=== PATIENT | female | born 1995 | race Caucasian/White ===

== ENCOUNTER 2020-03-22 07:57 | Outpatient (CLI) | payer SELFPAY ==
[2020-03-22] MEDS ORDERED: IOVERSOL 320 50 ML VIAL ONE (08:25)
[2020-03-22] MEDS ORDERED: IOVERSOL 320 100 ML VIAL IVP ONE ×2 (08:25→14:33)
--- NOTE | 2020-03-22 13:57 | CT Report ---
Reason: ABDOMINAL MASS, RLQ Procedure Date: 03/22/2020 Accession Number: [id number] / [id number] Procedure: CT - Abdomen/Pelvis W CPT Code: Final Report FULL RESULT: EXAM: CT ABDOMEN AND PELVIS EXAM DATE: 03/22/2020 09:29 AM. CLINICAL HISTORY: Abdominal mass, right lower quadrant. COMPARISONS: None. TECHNIQUE: Routine helical CT imaging was performed through the abdomen and pelvis. IV contrast: 100 mL of Optiray 320. Enteric contrast: Yes. Reconstructions: Coronal and sagittal. In accordance with CT protocol optimization, one or more of the following dose reduction techniques were utilized for this exam: automated exposure control, adjustment of mA and/or KV based on patient size, or use of iterative reconstructive technique. FINDINGS: Lung Bases: Unremarkable. Liver: Normal. No masses. Gallbladder/Bile Ducts: Unremarkable. Spleen: Normal. Pancreas: Normal. Adrenal Glands: Normal. Kidneys: Normal. No masses or hydronephrosis. Peritoneal Cavity/Bowel: No pneumoperitoneum, adenopathy or masses seen. Small volume ascites is noted. Moderate to marked wall thickening centered in the cecum and the distal portions of the terminal ileum. Small volume fluid extends from the right lower quadrant of the abdomen into the pelvis. No loculated collections are noted. In addition, there is a 0.9 cm dilated tubular structure most consistent with an enlarged appendix on image 3, 69. No definite appendicolith. Epicenter of the inflammatory changes appears to be small bowel and cecum rather than the appendix. Occasional sigmoid diverticula noted. The remaining portions of the stomach, small bowel and large bowel are normal. Pelvic Organs: Pelvic organs are normal. Free fluid is noted in the pelvis. Normal bladder. No bladder stone or mass. Vasculature: No aneurysms or other significant abnormality. Bones: No significant abnormality. Other: None. IMPRESSION: 1. Significant right lower quadrant inflammatory changes with long segment of terminal ileal and short segment cecal wall thickening. Dilated appendix measures 0.9 cm. Differential includes an infectious or inflammatory process centered in the cecum and terminal ileum with secondary inflammation of the appendix. Alternatively, appendicitis with secondary inflammation of the terminal ileum and cecum are on the differential. Given that the inflammatory changes seem to be centered around the cecum and terminal ileum more than the appendix, favor the first process over the latter. Consider surgical consultation. 2. No complications such as obstruction, perforation or abscess. [facility] The call report notification system was initiated by Dr. Mallika Naqvi at 11:55 AM on 03/22/2020. The above call report findings were discussed with Carmen Neves by Dr. Mallika Naqvi at 12:02 PM on 03/22/2020.
[2020-03-22] MEDS ORDERED: IOVERSOL 320 50 ML VIAL PO ONE (14:33)
== END 2020-03-22 07:58 | disposition home or self-care (01) ==
LOC: DI 07:57
PROVIDERS: ATTEND Obstetrics & Gynecology
DX: R93.5 Abnormal findings on diagnostic imaging of other abdominal regions, including retroperitoneum (principal)
CPT/HCPCS: 74177; Q9967

== ENCOUNTER 2020-04-12 13:50 | Outpatient (CLI) | payer SELFPAY | END 2020-04-12 13:51 | disposition home or self-care (01) | LOC: LAB.S 13:50 | PROVIDERS: ATTEND Surgery | DX: R10.31 Right lower quadrant pain (principal); Z53.9 Procedure and treatment not carried out, unspecified reason | CPT/HCPCS: 81599 ==

== ENCOUNTER → 2020-04-12 | Outpatient (CLI) | payer SELFPAY | LOC: LAB 08:00 | PROVIDERS: ATTEND Obstetrics & Gynecology | DX: R10.31 Right lower quadrant pain (principal); Z11.59 Encounter for screening for other viral diseases | CPT/HCPCS: 81599 ==

== ENCOUNTER 2020-04-16 07:34 | Day surgery (SDC) | payer SELFPAY ==
[2020-04-16] MEDS ORDERED: HYDROmorphone 1 MG/ML CARPUJECT IVP ONE (07:35)
[2020-04-16] MEDS ORDERED: MIDAZOLAM 2 MG/2 ML VIAL IVP ONE (07:35)
[2020-04-16] MEDS ORDERED: PROPOFOL 200 MG/20 ML VIAL IVP ONE (07:35)
[2020-04-16] MEDS ORDERED: LIDOCAINE-MPF 2% 5 ML VIAL IM ONE (07:35)
[2020-04-16] MEDS ORDERED: GLYCOPYRROLATE 1 MG/5 ML VIAL IVP ONE (07:35)
[2020-04-16] MEDS ORDERED: ACETAMINOPHEN 1,000 MG/100 ML 100 ML IV ONE (07:35)
[2020-04-16] MEDS ORDERED: ROCURONIUM 50 MG/5 ML VIAL IVP ONE (07:35)
[2020-04-16] MEDS ORDERED: KETOROLAC 30 MG/ML VIAL IVP ONE (07:35)
[2020-04-16] MEDS ORDERED: fentaNYL 100 MCG/2 ML VIAL IVP ONE (07:35)
[2020-04-16] MEDS ORDERED: NEOSTIGMINE 1 MG/1 ML 10 ML MDV IVP ONE (07:35)
[2020-04-16] MEDS ORDERED: DEXAMETHASONE 4 MG/ML VIAL IVP ONE (07:35)
[2020-04-16] MEDS ORDERED: ONDANSETRON 4 MG/2 ML VIAL IVP ONE (07:35)
[2020-04-16] MEDS ORDERED: LACTATED RINGERS 1,000 ML IV ONE ×3 (07:37→10:19)
[2020-04-16 07:52] LABS: HCG UR QUAL NEGATIVE
[2020-04-16] MEDS ORDERED: LIDOCAINE 1%-EPI 1:100000 20 ML MDV ONE (07:53)
[2020-04-16] MEDS ORDERED: BUPIVACAINE 0.5% PF 30 ML VIAL ONE (07:53)
[2020-04-16] MEDS ORDERED: CEFOTETAN DISODIUM 1 GM VIAL ONE (07:54)
[2020-04-16] MEDS ORDERED: LIDOCAINE 1%-EPI 1:100000 30 ML MDV SUBQ ONE (08:15)
[2020-04-16] MEDS ORDERED: BUPIVACAINE 0.5% PF 30 ML VIAL SUBQ ONE ×2 (08:16)
--- NOTE | 2020-04-16 08:32 | ANESTHESIA ---
Pre-Anesthesia VS, & Labs - Diagnosis RLQ pain - Procedure diagnostic laparoscopy Vital Signs: Temp Pulse Resp BP Pulse Ox 36.9 C 94 15 134/93 H 97 04/16/20 07:52 04/16/20 07:52 04/16/20 07:52 04/16/20 07:52 04/16/20 07:52 Height 5 ft 9 in Weight (kg) 92 kg Body Mass Index 27.8 - NPO >8 hours - Is Patient ?: No - Lab Results Lab results reviewed: Yes Home Medications and Allergies Ethinyl Estradiol/Drospirenone [Jasmiel 3 mg-0.02 mg Tablet] 1 each PO DAILY 03/28/20 Omeprazole 20 mg PO BID 04/12/20 Allergies/Adverse Reactions: Allergies Allergy/AdvReac Type Severity Reaction Status Date / Time No Known Drug Allergies Allergy Verified 07/24/15 12:43 Anes History & Medical History - Anesthetic History Anesthesia Complications: reports: No previous complications - Medical History Cardiovascular: reports: None Pulmonary: reports: None Gastrointestinal: reports: GERD, Other Urinary: reports: None Neuro: reports: None Musculoskeletal: reports: None Endocrine/Autoimmune: reports: None Blood Disorders: reports: None Skin: reports: None Smoking Status: Former smoker (quit 2 years ago) - Surgical History General: EGD Eyes Ears Nose Throat (EENT): Tonsil/Adenoidectomy Orthopedic:  Exam General: Alert, Oriented x3, Cooperative Dental: WNL Mouth Opening: Greater than 4 Fingerbreadths Neck Mobility: Normal Mallampati classification: II Thyromental Distance: 4-6 cm Respiratory: Lungs clear Cardiovascular: Regular rate Plan Anesthesia Type: General Consent for Procedure(s) Verified and Reviewed: Yes Code Status: Attempt Resuscitation ASA classification: 2-Mild systemic disease Is this case an emergency?: No
--- NOTE | 2020-04-16 10:15 | OPERATIVE REPORT ---
Operative Report - General Procedure Date: 04/16/20 Planned Procedure: Diagnostic laparoscopy with appendectomy Pre-Op Diagnosis: Right lower quadrant pain and mass Procedure Performed: Diagnostic laparoscopy with extensive lysis of adhesions and appendectomy with drain placement. Post Op Diagnosis: Right lower quadrant pain and mass - Procedure Note Primary Surgeon: Nan Anesthesia Provider: LUCIAN Tejada Anesthesia Technique: General ET tube, Local Pathology: Portions of appendix to pathology in formalin Estimated Blood Loss (mL): 50 Drain/Tube Type: Samuel drain (19 F Samuel drain in the right lower quadrant) Indications: Persistent right lower quadrant pain with mass on CT and normal colonoscopy Findings: 1. Right lower quadrant phlegmon with dense adhesions. The appendix extends into the phlegmon. 2. Normal and viable appearing right tube and ovary not involved in the inflammatory process. Complications: None apparent - Other Other Information/Narrative: After obtaining informed consent, the patient is brought to the operating room and placed in the supine position on the operating table. Following successful induction of general endotracheal anesthesia, appropriate padding of all bony prominences, and placement of appropriate monitors, the abdomen was prepped and draped in the standard surgical fashion. A timeout was held per scope protocol. All elements of the surgical safety checklist were followed before, during, and after the procedure. We began the procedure by infiltrating mixture of local anesthetics inferior to the umbilicus. An incision was created here and carried down through the skin and subcutaneous tissue to reveal the fascia below. 2-0 Vicryl retention sutures were placed on either side of the midline and the abdomen was entered under direct vision using a 15 blade scalpel. A 10 mm blunt Obrien balloon trocar was placed in the abdominal cavity and it was insufflated to 15 mmHg pressure. A second trocar was placed midway between the umbilicus and the pubis and a third in the right upper quadrant again after infiltration with local anesthetic. The abdomen was insufflated to 15 mmHg pressure and the patient was placed in Trendelenburg position. With a camera placed in the central port, we immediately visualized a right lower quadrant phlegmon. It extended from the right lower quadrant toward the midline. We began performing lysis of adhesions rolling the right colon and associated phlegmon off of the abdominal wall gingerly. We not able to see clearly so a fourth trocar was placed in the suprapubic region again with local anesthetic. This gave us better visualization on the top of the phlegmon. After some considerable dissection we were able to identify what appeared to be the appendix attachment to the cecum. Additionally we were able to easily identify the right tube and ovary and they appeared to be completely normal and not involved in the inflammatory process. The appendix itsWas then liberated from its attachment to the cecum with a gastrointestinal anastomotic device. We then proceeded to dissected free from the center of this phlegmon. This was done gingerly. The tissue was very stiff and indurated. The mesentery was very shortened. Once we had the entire appendix free, it was pulled out through the central port there was no gross purulence but the patient's heart rate was noted to increase substantially we will began to dissect through the phlegmon. The right colon proximal to the cecum appears completely normal. The ileocolic junction was identified with some difficulty. It was quite thickened and indurated. It is impossible to determine if there was creeping fat associated with the distal ileum due to the significant inflammatory response. The cecum was then identified once again and the staple line examined once again a second staple line was placed Distal to the first as the tissue was quite indurated and we wanted to be sure there was no leak. A clip was placed at the end of this as well. We then placed a 19 [place] Samuel drain through the umbilical port and brought it out in the right upper quadrant. It was placed in the right paracolic gutter in and around the stapled end of the cecum and into the central portion of the phlegmon. It was sewn into place. The wound was then checked once again for hemostasis the abdomen was irrigated with 1.5 L of warm saline solution and aspirated free of all fluid and particulate matter. The table was then flattened. All trochars were removed under direct vision and the abdomen desufflated. The umbilical incision was closed with 2 layers of 0 Vicryl suture and Monocryl was placed in the skin all other skin incisions were closed with Monocryl. Dermabond was applied to the skin. All sponge, needle, and instrument counts were correct at the conclusion of the case. The patient was allowed awaken from anesthesia without significant difficulty and taken to the postanesthesia care unit in good condition.
[2020-04-16] MEDS ORDERED: SODIUM CHLORIDE FLUSH 0.9% 10 ML SYRINGE IVP PRN (10:24)
[2020-04-16] MEDS ORDERED: ONDANSETRON 4 MG/2 ML VIAL IVP PRN (10:24)
[2020-04-16] MEDS ORDERED: oxyCODONE 5 MG TABLET PO PRN (10:24)
[2020-04-16] MEDS ORDERED: HYDROmorphone 0.5 MG/0.5 ML SYRINGE IVP PRN (10:24)
[2020-04-16] MEDS: HYDROmorphone 1 MG/ML CARPUJECT ONE ×3 (10:46→11:03)
[2020-04-16] MEDS: KETOROLAC 30 MG/ML VIAL IVP SCH ×3 (11:37→22:44)
[2020-04-16] MEDS: ACETAMINOPHEN 1,000 MG/100 ML 100 ML IV SCH ×2 (11:39→18:16)
[2020-04-16] MEDS: SODIUM CHLORIDE 0.9% 1,000 ML IV SCH ×2 (11:39→22:17)
[2020-04-16] MEDS ORDERED: ceFAZolin 2 GM in SODIUM CHLORIDE 0.9% 100ML 100 ML IV SCH (16:00)
[2020-04-16] MEDS: ceFAZolin 2 GM in SODIUM CHLORIDE 0.9% 100ML 100 ML IV SCH (16:26)
[2020-04-16] MEDS ORDERED: SENNA 8.6 MG TABLET PO PRN (16:39)
[2020-04-16] MEDS: SODIUM CHLORIDE FLUSH 0.9% 10 ML SYRINGE IVP SCH (18:22)
[2020-04-17] MEDS: ACETAMINOPHEN 1,000 MG/100 ML 100 ML IV SCH ×2 (00:17→06:23)
[2020-04-17] MEDS: SODIUM CHLORIDE FLUSH 0.9% 10 ML SYRINGE IVP SCH ×2 (00:30→08:36)
[2020-04-17] MEDS: ceFAZolin 2 GM in SODIUM CHLORIDE 0.9% 100ML 100 ML IV SCH (00:30)
[2020-04-17] MEDS: KETOROLAC 30 MG/ML VIAL IVP SCH (05:17)
[2020-04-17 06:09] LABS: BASOPHILS % (AUTO) 0.1 %; EOSINOPHILS % (AUTO) 0.2 %; HGB - HEMOGLOBIN 10.1 g/dL (12.0-16.0); LYMPHOCYTES # (AUTO) 0.9 10^3/uL (1.5-3.5); LYMPHOCYTES % (AUTO) 9.1 %; MEAN CORPUSCULAR HEMOGLOBIN 27.1 pg (27.0-31.0); MEAN CORPUSCULAR HGB CONC 31.5 g/dL (32.0-36.0); MEAN CORPUSCULAR VOLUME 86.1 fL (81.0-99.0); MEAN PLATELET VOLUME 9.9 fL (7.9-10.8); MONOCYTES # (AUTO) 0.9 10^3/uL (0.0-1.0); MONOCYTES % (AUTO) 9.3 %; NEUTROPHILS # (AUTO) 7.6 10^3/uL (1.5-6.6); NEUTROPHILS % (AUTO) 80.8 %; PLT - PLATELET COUNT 274 10^3/uL (130-450); RED BLOOD COUNT 3.73 10^6/uL (4.20-5.40); RED CELL DISTRIBUTION WIDTH 14.3 % (12.0-15.0); WHITE BLOOD COUNT 9.4 x10^3/uL (4.8-10.8)
[2020-04-17 06:19] LABS: CALCIUM 8.2 mg/dL (8.5-10.3); CREATININE 0.7 mg/dL (0.4-1.0)
[2020-04-17] MEDS ORDERED: PANTOPRAZOLE 40 MG VIAL IVP SCH (07:00)
[2020-04-17] MEDS ORDERED: IBUPROFEN 600 MG TABLET PO PRN (07:31)
[2020-04-17] MEDS ORDERED: oxyCODONE 5 MG TABLET PO PRN (07:31)
[2020-04-17] MEDS ORDERED: ONDANSETRON 4 MG/2 ML VIAL IVP PRN (07:31)
[2020-04-17] MEDS ORDERED: ACETAMINOPHEN 325 MG TABLET PO PRN (07:31)
[2020-04-17] MEDS ORDERED: ETHINYL ESTRADIOL PO SCH (09:00)
[2020-04-17] MEDS ORDERED: DOCUSATE SODIUM 250 MG CAPSULE PO SCH (09:00)
[2020-04-17] MEDS ORDERED: DROSPIRENONE PO SCH (09:00)
[2020-04-17 09:12] VITALS: BP 129/72
== END 2020-04-17 09:15 | disposition home or self-care (01) ==
LOC: SDS 07:34 → MS3 11:18 → SDS 04-17 09:15
PROVIDERS: ATTEND Surgery
PROC: 0DTJ4ZZ Resection of Appendix, Percutaneous Endoscopic Approach (ICD-10-PCS; principal; 2020-04-16 08:45)
DX: K35.80 Unspecified acute appendicitis (principal)
CPT/HCPCS: 36415; 44970; 80048; 81025; 85025; A9270; J0131; J1170; J7120

== ENCOUNTER 2022-11-24 11:30 | Outpatient (CLI) | payer OTHER ==
[2022-11-24 15:29] LABS: BILIRUBIN,URINE NEGATIVE (NEGATIVE); GLUCOSE, URINE (UA) NEGATIVE (NEGATIVE); KETONES,URINE (UA) TRACE mg/dL (NEGATIVE); LEUKOCYTE ESTERASE, URINE NEGATIVE (NEGATIVE); NITRITE,URINE NEGATIVE (NEGATIVE); OCCULT BLOOD,URINE NEGATIVE (NEGATIVE); PH,URINE 6.5 PH (5.0-7.5); PROTEIN,URINE NEGATIVE (NEGATIVE); UROBILINOGEN,URINE 0.2 (NORMAL) E.U./dL (NORMAL)
[2022-11-24 15:30] LABS: CLARITY,URINE CLEAR (CLEAR)
[2022-11-24 15:48] LABS: BACTERIA,URINE Few /HPF (None Seen); CRYSTALS,URINE 11-25 Ca Oxalate /LPF; MUCUS,URINE Few Strands; RBC,URINE None Seen /HPF (0-5); SQUAMOUS EPITHELIAL CELL,UR FEW Squamous (<= Few); WBC,URINE 0-3 /HPF (0-5)
[2022-11-24 15:49] LABS: YEAST,URINE PRESENT
== END 2022-11-24 23:59 | disposition home or self-care (01) ==
LOC: LAB.WC 11:30
PROVIDERS: ATTEND Obstetrics & Gynecology
DX: R30.0 Dysuria (principal)
CPT/HCPCS: 81001; 87086

== ENCOUNTER 2022-12-01 15:00 | Outpatient (CLI) | payer OTHER ==
--- NOTE | 2022-12-02 11:25 | Ultrasound Report ---
PROCEDURE: Pelvic w/Transvaginal INDICATIONS: PELVIC PAIN TECHNIQUE: Real-time scanning was performed of the pelvic organs, with image documentation. Additional endovagi nal scanning was necessary due to incomplete visualization of the adnexal and endometrial structures by transabdominal scanning. COMPARISON: CT abdomen and pelvis with, 03/14/2020. FINDINGS: Uterus: Uterus is anteverted and normal in size at 7.2 x 2.8 x 4.7 cm. The myometrium is homogeneou s. The endometrium measures 2.0 mm in combined thickness. Nabothian cysts noted in cervix. Ovaries: The right ovary measures 2.6 x 2.2 x 1.7 cm, with a calculated ovarian volume of 5.1 cc. T he left ovary measures 2.3 x 2.1 x 1.5 cm, with a calculated ovarian volume of 3.8 cc. The ovaries h ave a normal sonographic appearance. Less than 12 follicles can be seen in each ovary. No adnexal m asses are seen. Other: No pathologic free abdominal or pelvic fluid. IMPRESSION: Normal pelvic ultrasound exam. A cause for pelvic pain is not identified. If clinical sy mptoms persist, CT is suggested for follow-up. Reviewed by: Vianney Palm MD on 12/02/2022 11:23 AM PST Approved by: Vianney Palm MD on 12/02/2022 11:23 AM PST Station ID: [id number]
== END 2022-12-01 15:01 | disposition home or self-care (01) ==
LOC: DI 15:00
PROVIDERS: ATTEND Obstetrics & Gynecology
DX: R10.2 Pelvic and perineal pain (principal)

== ENCOUNTER 2022-12-19 09:46 | Outpatient (CLI) | payer OTHER ==
[2022-12-19 10:12] LABS: BASOPHILS % (AUTO) 0.3 %; EOSINOPHILS % (AUTO) 0.3 %; HCT - HEMATOCRIT 37.4 % (37.0-47.0); HGB - HEMOGLOBIN 11.8 g/dL (12.0-16.0); LYMPHOCYTES # (AUTO) 0.7 10^3/uL (1.5-3.5); LYMPHOCYTES % (AUTO) 12.3 %; MEAN CORPUSCULAR HEMOGLOBIN 26.9 pg (27.0-31.0); MEAN CORPUSCULAR HGB CONC 31.6 g/dL (32.0-36.0); MEAN CORPUSCULAR VOLUME 85.4 fL (81.0-99.0); MEAN PLATELET VOLUME 9.5 fL (7.9-10.8); MONOCYTES # (AUTO) 0.3 10^3/uL (0.0-1.0); MONOCYTES % (AUTO) 4.6 %; NEUTROPHILS % (AUTO) 82.3 %; PLT - PLATELET COUNT 391 10^3/uL (130-450); RED BLOOD COUNT 4.38 10^6/uL (4.20-5.40); RED CELL DISTRIBUTION WIDTH 13.6 % (12.0-15.0)
[2022-12-19 10:41] LABS: % IRON SATURATION 5 % (20-50); ALBUMIN 3.5 g/dL (3.2-5.5); ALBUMIN/GLOBULIN RATIO 0.8 (1.0-2.2); ALKALINE PHOSPHATASE 61 IU/L (42-121); ALT ALANINE AMINOTRANSFERASE 29 IU/L (10-60); AST ASPARTATE AMINOTRANSFERASE 20 IU/L (10-42); BILIRUBIN,TOTAL 0.3 mg/dL (0.2-1.0); BUN - BLOOD UREA NITROGEN 11 mg/dL (6-20); CALCIUM 9.3 mg/dL (8.5-10.3); CARBON DIOXIDE - CO2 26 mmol/L (21-32); CHLORIDE 104 mmol/L (101-111); CREATININE 0.8 mg/dL (0.4-1.0); GFR - MDRD 85 (>89); GLUCOSE 94 mg/dL (70-100); IRON 31 ug/dL (28-170); POTASSIUM 3.9 mmol/L (3.5-5.0); SODIUM 136 mmol/L (135-145); TOTAL IRON BINDING CAPACITY 587 ug/dL (250-450); TRANSFERRIN 419 mg/dL (192-382)
[2022-12-19 10:46] LABS: CRP - C-REACTIVE PROTEIN < 1.0 mg/dL (0-1.0)
[2022-12-19 10:48] LABS: THYROID STIMULATING HORMONE 0.83 uIU/mL (0.34-5.60)
[2022-12-19 10:53] LABS: FERRITIN 8.9 ng/mL (11.0-306.8)
== END 2022-12-19 09:47 | disposition home or self-care (01) ==
LOC: LAB 09:46
PROVIDERS: ATTEND Physician Assistant
DX: R19.7 Diarrhea, unspecified (principal); D64.9 Anemia, unspecified
CPT/HCPCS: 36415; 80053; 81599; 82728; 83540; 84443; 84466; 85025; 86038; 86140

== ENCOUNTER 2022-12-28 09:40 | Outpatient (CLI) | payer OTHER ==
[2022-12-28] MEDS ORDERED: DIATR MEGLU/DIATRIZOATE SODIUM 120 ML BOTTLE ONE (10:05)
[2022-12-28] MEDS ORDERED: iohexoL-300 100 ML VIAL ONE (10:05)
[2022-12-28] MEDS ORDERED: iohexoL-300 100 ML VIAL IVP ONE (11:12)
[2022-12-28] MEDS ORDERED: DIATRIZOATE MEGLU/DIATRIZO SOD 30 ML BOTTLE PO ONE (11:13)
--- NOTE | 2022-12-29 10:52 | CT Report ---
PROCEDURE: ABDOMEN/PELVIS W INDICATIONS: PELVIC PAIN CONTRAST: 100ml omni 300 TECHNIQUE: After the administration of oral and intravenous contrast, 5 mm thick sections acquired from the diap hragms to the symphysis. 5 mm thick coronal and sagittal reformats were acquired. For radiation dos e reduction, the following was used: automated exposure control, adjustment of mA and/or kV accordin g to patient size. COMPARISON: None. FINDINGS: Image quality: Excellent. ABDOMEN: Lung bases: Lung bases are clear. Heart size is normal. Solid organs: The liver is enlarged, with bandlike regions of low-attenuation. No solid mass. No tabitha iary dilation. Gallbladder is unremarkable. Solid organs are unremarkable. Peritoneum and bowel: Multiple skip segments of bowel wall thickening of the ileum, with associated l uminal narrowing and option dilation. The longest segment is of the terminal ileum, measuring 10.6 cm . 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 Engorgement of the vasa recta within this region. A small volume of free fluid in the pelvis. Nodes and vessels: No retroperitoneal or mesenteric adenopathy by size criteria. Aorta and inferior vena cava are normal in size. Miscellaneous: No ventral hernias. PELVIS: Genitourinary: Bladder wall thickness is normal. Miscellaneous: No inguinal hernias or adenopathy. Bones: No suspicious bony lesions. No vertebral body compression fractures. IMPRESSION: 1. 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 GI referral is recommended, if not already performed. 2. Enlarged, heterogeneous liver may indicate hepatic steatosis or underlying liver disease associate d with inflammatory bowel disease. Reviewed by: Jese Shaffer on 12/29/2022 10:50 AM PST Approved by: Jese Shaffer on 12/29/2022 10:50 AM PST Station ID: [id number]
== END 2022-12-28 09:41 | disposition home or self-care (01) ==
LOC: DI 09:40
PROVIDERS: ATTEND Physician Assistant
DX: K63.89 Other specified diseases of intestine (principal); K63.2 Fistula of intestine; R16.0 Hepatomegaly, not elsewhere classified
CPT/HCPCS: 74177; Q9963; Q9967

== ENCOUNTER 2023-04-29 08:15 | Outpatient (CLI) | payer OTHER ==
--- NOTE | 2023-04-29 15:10 | XRAY Report ---
PROCEDURE: Ankle 3 View LT INDICATIONS: SPRAIN OF OTHER LIGAMENTS OF LEFT ANKLE TECHNIQUE: 3 views of the ankle were acquired. COMPARISON: X-ray foot 04/29/2023 FINDINGS: Bones: No fractures or dislocations. Ankle mortise is normally aligned. No suspicious bony lesions . Soft tissues: No tibiotalar joint effusion. Achilles tendon appears normal. IMPRESSION: No visualized acute fracture or dislocation. However, occult injury cannot be excluded. Recommend asmita rt interval imaging follow-up in 7-10 days as clinically indicated for additional evaluation. Reviewed by: Mary Harmon MD on 04/29/2023 3:09 PM PDT Approved by: Mary Harmon MD on 04/29/2023 3:09 PM PDT Station ID: [id number]
--- NOTE | 2023-04-29 15:10 | XRAY Report ---
PROCEDURE: Foot 3 View LT INDICATIONS: CONTUSION OF LEFT FOOT TECHNIQUE: 3-D views of the foot were acquired. COMPARISON: X-ray ankle 04/29/2023 FINDINGS: Bones: No fractures or dislocations. No suspicious bony lesions. Soft tissues: No suspicious soft tissue calcifications or masses. IMPRESSION: No visualized acute fracture or dislocation. However, occult injury cannot be excluded. Recommend asmita rt interval imaging follow-up in 7-10 days as clinically indicated for additional evaluation. Reviewed by: Mary Harmon MD on 04/29/2023 3:08 PM PDT Approved by: Mary Harmon MD on 04/29/2023 3:08 PM PDT Station ID: [id number]
== END 2023-04-29 08:30 | disposition home or self-care (01) ==
LOC: DI.N 08:15
PROVIDERS: ATTEND Family Medicine
DX: S90.32XA Contusion of left foot, initial encounter (principal); S93.492A Sprain of other ligament of left ankle, initial encounter

== ENCOUNTER 2024-03-21 07:31 | Outpatient (CLI) | payer OTHER | END 2024-03-21 23:59 | disposition home or self-care (01) | LOC: EMS 07:31 | PROVIDERS: ATTEND Emergency Medicine | DX: M25.571 Pain in right ankle and joints of right foot (principal); S99.911A Unspecified injury of right ankle, initial encounter; W10.8XXA Fall (on) (from) other stairs and steps, initial encounter; Y92.009 Unspecified place in unspecified non-institutional (private) residence as the place of occurrence of the external cause | CPT/HCPCS: A0425; A0427 ==

== ENCOUNTER 2024-03-21 07:50 | Emergency (ER) | payer OTHER ==
--- NOTE | 2024-03-21 07:55 | ED Physician Documentation ---
PD HPI LOWER EXT INJURY - Stated complaint Stated Complaint: GLF - History obtained from History obtained from: Patient, EMS - History of Present Illness PD HPI LOW EXT INJURY LOCATION: Right, Ankle Type of injury: Fall (walking down stairs, and ankle twisted, felt pop, unable to bear weight.) Where injury occurred: Home Timing - onset: How many minutes ago (30), Today Timing - details: Abrupt onset, Still present Worsened by: Moving Associated symptoms: Swelling. No: Weakness, Numbness Recently seen: Not recently seen Review of Systems Neurologic: denies: Focal weakness, Numbness, Altered mental status, Headache, Head injury, LOC PD PAST MEDICAL HISTORY - Past Medical History Cardiovascular: None Respiratory: None Neuro: None Endocrine/Autoimmune: None GI: GERD, Other : None HEENT: None Psych: None Musculoskeletal: None Derm: None - Past Surgical History General: EGD Ortho:  HEENT: Tonsil/Adenoidectomy - Present Medications Home Medications: Ambulatory Orders Medication Instructions Recorded Confirmed Ethinyl Estradiol/Drospirenone 1 each PO DAILY 03/28/20 03/21/24 [Jasmiel 3 mg-0.02 mg Tablet] Adalimumab [Humira(Cf) Pen 80 mg SUBQ Q14D 03/21/24 03/21/24 Crohn's-Uc-Hs] Azathioprine [Azasan] 75 mg PO DAILY 03/21/24 03/21/24 Meloxicam [Mobic] 7.5 mg PO BID 10 Days #20 tablet 03/21/24 oxyCODONE [Roxicodone] 5 mg PO Q6H PRN #25 tablet 03/21/24 - Allergies Allergies/Adverse Reactions: Allergies Allergy/AdvReac Type Severity Reaction Status Date / Time No Known Drug Allergies Allergy Verified 07/24/15 12:43 - Social History Smoking Status: Former smoker (quit 2 years ago) PD ED PE NORMAL - Vitals Vital signs reviewed: Yes - General General: Alert and oriented X 3, No acute distress, Well developed/nourished - Back Back: No spinal TTP - Derm Derm: Normal color, Warm and dry - Extremities Extremities: Other (right lower part of lower leg with tenderness and swelling. Not tender at malleoli, but is above that. Normal color, cap refill, movement and sensation at toes. ) - Neuro Neuro: Alert and oriented X 3, No motor deficit, No sensory deficit, Normal speech Results - Vitals Vitals: Vital Signs - 24 hr 03/21/24 03/21/24 07:51 09:59 Temperature 36 C L Heart Rate 51 L 68 Respiratory 18 18 Rate Blood Pressure 132/84 H 119/79 O2 Saturation 100 98 Oxygen O2 Source Room air Procedures - Splint (location) - Minor right lower leg Splint applied by: Physician, Tech Type of splint: Fiberglass, Posterior, Stirrup Other: Patient tolerated well (was given repeat dose DIlaudid prior tp splinting.), No complications, Crutches provided PD Medical Decision Making - ED course Complexity details: reviewed results (lower tib/fib fracture with mild angulation and slight displacement. ), considered differential (fell walking down stairs with inversion/twisting and feeling of bone crackle. Unabule to bear weight. She states she saw leg angulated and did push it straighter prior to EMS arrival. To ED splinted. ), d/w patient, d/w student union consultant (phone advice from Dr. Reid - splint with some traction while splinting and f/u office tomorrow/Thursday. ) Departure - Departure Disposition: Home, Self Care Clinical Impression: Tibia/fibula fracture, shaft Fall down stairs Qualifiers: Encounter type: initial encounter Qualified Code(s): W10.8XXA - Fall (on) (from) other stairs and steps, initial encounter Condition: Stable Record reviewed to determine appropriate education?: Yes Instructions: ED Fx Lower Ext Follow-Up: Prema Roman PA [Primary Care Provider] - Chacho Reid MD [Provider Admit Priv/Credential] - Prescriptions: Meloxicam [Mobic] 7.5 mg PO BID 10 Days #20 tablet oxyCODONE [Roxicodone] 5 mg PO Q6H PRN #25 tablet PRN Reason: Pain Comments: Keep the splint on. Crutches for nonweightbearing. Ice elevate and rest your lower leg much of the time for the next couple of days to help minimize swelling. Call the orthopedic office tomorrow morning for an appointment time. Tell them that you are here and have a broken leg and Dr. Kyra roblero wants to see you in the office Thursday if possible. At that point they can assess positioning and the x-ray more closely and discuss with you options of surgery versus casting only. More common would be surgery for a fracture like this. Use anti-inflammatories. I wrote for 1 called meloxicam twice daily for the next week or 2. Add acetaminophen/Tylenol 500 to 650 mg 4 times daily regularly for pain. To that add oxycodone every 4-6 hours if needed for worse pain. You will likely want to use a stool softener to keep from getting constipated. Return to the ER if worsening pain despite medications etc. I sent your prescriptions to [facility] pharmacy. I am prescribing a short course of narcotic pain medication for you. These are potentially dangerous and addictive medications that should be used carefully. These medications may constipate you. Take an gywu-ylt-wvbqfxb stool softener such as docusate twice daily with plenty of water while taking these medications. If you go 24 hours without a bowel movement, take szqr-ale-[id number] MiraLAX, per package instructions. Do not drink or drive while taking these medications. If you received narcotic or sedating medications while in the emergency department do not drive for 24 hours. Store this medication in a safe, secure place and out of reach of children. It is a violation of federal law to give or sell this medication to another person or to use in a manner other than prescribed. The ED will not refill narcotic prescriptions, including prescriptions lost or stolen. You can dispose of unwanted medications at the [facility]'s office or at several pharmacies such as [facility]. Forms: PCP List Discharge Date/Time: 03/21/24 10:35
[2024-03-21] MEDS: HYDROmorphone 1 MG/ML CARPUJECT IVP STA ×2 (08:43→09:37)
--- NOTE | 2024-03-21 08:44 | XRAY Report ---
PROCEDURE: Ankle 3+V RT INDICATIONS: fall down stairs. TECHNIQUE: 3 views of the ankle were acquired. COMPARISON: None. FINDINGS: Bones: Displaced fracture of the distal fibula. Comminuted and this was fractures of the distal tibi a with intra-articular extension.. Ankle mortise is normally aligned. No suspicious bony lesions. Soft tissues: No tibiotalar joint effusion. Achilles tendon appears normal. IMPRESSION: Displaced distal tibia and fibula fractures as above. Reviewed by: Bradley Campos MD on 03/21/2024 8:43 AM PDT Approved by: Bradley Campos MD on 03/21/2024 8:43 AM PDT Station ID: [id number]
[2024-03-21] MEDS: KETOROLAC 15 MG/ML VIAL IVP STA (09:36)
[2024-03-21 10:38] VITALS: BP 119/79; O2SAT 98
== END 2024-03-21 10:35 | disposition home or self-care (01) ==
LOC: EDUNIT# → ED 07:50
DX: S82.201A Unspecified fracture of shaft of right tibia, initial encounter for closed fracture (principal); S82.401A Unspecified fracture of shaft of right fibula, initial encounter for closed fracture; W10.9XXA Fall (on) (from) unspecified stairs and steps, initial encounter; Y92.009 Unspecified place in unspecified non-institutional (private) residence as the place of occurrence of the external cause; Z79.899 Other long term (current) drug therapy; Z87.891 Personal history of nicotine dependence
CPT/HCPCS: 29515; 73610; 96374; 96375; 99283; 99284; J1170

== ENCOUNTER 2024-03-22 11:54 | Outpatient (CLI) | payer OTHER ==
--- NOTE | 2024-03-22 13:01 | CT Report ---
PROCEDURE: Lower Extremity RT WO INDICATIONS: TIB FIB FX TECHNIQUE: Noncontrast 3-mm axial sections acquired from the distal tibial shaft to the talar dome, with coronal and sagittal reformats. For radiation dose reduction, the following was used: automated exposure c ontrol, adjustment of mA and/or kV according to patient size. COMPARISON: Left ankle x-ray series 03/21/2024. FINDINGS: Image quality: Excellent. Bones: Displaced distal tibia and fibular fractures. Longitudinal fracture component associated with the distal tibia fracture extends into the tibiotalar joint. Soft tissues: Soft tissue swelling. No significant soft tissue hematoma. Impression: Distal tibia and fibula fractures. Reviewed by: Trice Loja MD, PhD on 03/22/2024 1:00 PM PDT Approved by: Trice Loja MD, PhD on 03/22/2024 1:00 PM PDT Station ID: [id number]
== END 2024-03-22 11:55 | disposition home or self-care (01) ==
LOC: DI 11:54
PROVIDERS: ATTEND Orthopaedic Surgery
DX: S82.51XA Displaced fracture of medial malleolus of right tibia, initial encounter for closed fracture (principal); S82.831A Other fracture of upper and lower end of right fibula, initial encounter for closed fracture

== ENCOUNTER 2024-03-23 06:54 | Day surgery (SDC) | payer OTHER ==
[~2024-03-23 06:54] MED LIST: ceFAZolin 2 GM VIAL ONE
[2024-03-23] MEDS: LACTATED RINGERS 1,000 ML IV ONE ×2 (06:57→11:48)
[2024-03-23] MEDS: GABAPENTIN 400 MG CAPSULE ONE (07:05)
[2024-03-23] MEDS: CELECOXIB 100 MG CAPSULE PO ONE (07:05)
[2024-03-23] MEDS: ACETAMINOPHEN 500 MG TABLET PO ONE (07:05)
[2024-03-23] MEDS ORDERED: BUPIVACAINE 0.25% PF 30 ML VIAL ONE (07:11)
--- NOTE | 2024-03-23 07:15 | ANESTHESIA ---
Pre-Anesthesia VS, & Labs - Diagnosis R tib Fib fx - Procedure R IM nail Height: 5 ft 9 in - NPO >8 hours - Is Patient ?: No - Lab Results Lab results reviewed: Yes Home Medications and Allergies Ethinyl Estradiol/Drospirenone [Jasmiel 3 mg-0.02 mg Tablet] 1 each PO DAILY 03/28/20 Adalimumab [Humira(Cf) Pen Crohn's-Uc-Hs] 80 mg SUBQ Q14D 03/21/24 Azathioprine [Azasan] 75 mg PO DAILY 03/21/24 Allergies/Adverse Reactions: Allergies Allergy/AdvReac Type Severity Reaction Status Date / Time No Known Drug Allergies Allergy Verified 07/24/15 12:43 Anes History & Medical History - Anesthetic History Anesthesia Complications: reports: No previous complications Family history of Anesthesia Complications: Denies Family history of Malignant Hyperthermia: Denies - Medical History Cardiovascular: reports: None Pulmonary: reports: None Gastrointestinal: reports: GERD, Other Urinary: reports: None Neuro: reports: None Musculoskeletal: reports: None Endocrine/Autoimmune: reports: None Blood Disorders: reports: None Skin: reports: None Smoking Status: Former smoker (quit 2 years ago) Psychosocial: reports: Alcohol (social) History of Cancer?: No - Surgical History General: reports: EGD Eyes Ears Nose Throat (EENT): reports: Tonsil/Adenoidectomy Orthopedic: Exam General: Alert, Oriented x3, Cooperative Dental: WNL, Other (upper retainer, permanant) Mouth Openin Fingerbreadth Neck Mobility: Normal Mallampati classification: II Thyromental Distance: 4-6 cm Respiratory: Lungs clear, Normal breath sounds, No respiratory distress Cardiovascular: Regular rate Neurological: Normal speech Mental/Cognitive Status: Alert/Oriented X3, Normal for patient Plan Anesthesia Type: General Consent for Procedure(s) Verified and Reviewed: Yes Code Status: Attempt Resuscitation ASA classification: 2-Mild systemic disease Is this case an emergency?: No
[2024-03-23] MEDS ORDERED: LIDOCAINE-PF 2% 10 ML AMP SUBQ ONE (07:16)
[2024-03-23] MEDS ORDERED: PROPOFOL 200 MG/20 ML VIAL IVP ONE ×2 (07:16→11:28)
[2024-03-23] MEDS ORDERED: MIDAZOLAM 2 MG/2 ML VIAL ONE (07:17)
[2024-03-23] MEDS ORDERED: fentaNYL 100 MCG/2 ML VIAL ONE ×3 (07:17→11:25)
[2024-03-23] MEDS ORDERED: HYDROmorphone 0.5 MG/0.5 ML SYRINGE IVP PRN (07:27)
[2024-03-23] MEDS ORDERED: MORPHINE 2 MG/ML CARPUJECT IVP PRN (07:27)
[2024-03-23] MEDS ORDERED: ePHEDrine 50 MG/ML VIAL IVP PRN (07:27)
[2024-03-23] MEDS ORDERED: METOCLOPRAMIDE 10 MG/2 ML VIAL IVP PRN (07:27)
[2024-03-23] MEDS ORDERED: NALOXONE 0.4 MG/ML VIAL IVP PRN (07:27)
[2024-03-23] MEDS ORDERED: ATROPINE ABBOJECT 1 MG/10 ML SYRINGE IVP PRN (07:27)
[2024-03-23] MEDS ORDERED: fentaNYL 100 MCG/2 ML VIAL IVP PRN (07:27)
[2024-03-23 07:39] LABS: HCG UR QUAL NEGATIVE
[2024-03-23] MEDS ORDERED: LACTATED RINGERS 1,000 ML IV SCH (08:00)
[2024-03-23] MEDS ORDERED: DEXAMETHASONE 4 MG/ML VIAL ONE (09:15)
[2024-03-23] MEDS ORDERED: TRANEXAMIC ACID 1,000 MG/10 ML VIAL ONE (09:24)
[2024-03-23] MEDS ORDERED: HYDROmorphone 1 MG/ML CARPUJECT ONE (09:31)
[2024-03-23] MEDS: BUPIVACAINE 0.25% PF 30 ML VIAL SUBQ ONE (09:43)
[2024-03-23] MEDS ORDERED: KETAMINE 200 MG/20 ML VIAL ONE (10:06)
[2024-03-23] MEDS ORDERED: CELECOXIB 100 MG CAPSULE PO PRN (11:52)
[2024-03-23] MEDS ORDERED: ACETAMINOPHEN 500 MG TABLET PO PRN (11:52)
[2024-03-23] MEDS ORDERED: ONDANSETRON 4 MG/2 ML VIAL IVP PRN (11:52)
--- NOTE | 2024-03-23 12:07 | OPERATIVE REPORT ---
Operative Report - General Procedure Date: 03/23/24 Planned Procedure: Open Reduction and Internal Fixation of the right tibia and fibula fracture with Intramedullar Nail Pre-Op Diagnosis: RIGHT tibia and fibula fracture Procedure Performed: Operative Report - General Procedure Date: 03/23/24 Planned Procedure: Open reduction internal fixation right tibia-fibula shaft fractures with intramedullary nail/screws Pre-Op Diagnosis: Closed,Displaced distal tibia and fibular shaft fractures right leg Procedure Performed: Open reduction internal fixation right tibia utilizing [employer] 10 x 37 cm locked intramedullary nail, 3 distal locking screws and 1 proximal locking screws, Percutaneous medial malleolous partially cannulated screw Post Op Diagnosis: Same as preoperative diagnosis - Procedure Note Primary Surgeon: Jaxon Barragan MD Secondary Surgeon: Chacho Reid MD and Ashley PLASENCIA Anesthesia Provider: Tramaine Campbell CRNA and Kaelyn Mclaughlin CRNA Anesthesia Technique: General ET tube Estimated Blood Loss (mL): 150 Indications: This is a 28-year-old woman with a history of fall and injury to right leg. This fall occurred while navigating stairs. She was seen in the emergency room, placed in a long-leg splint and referred to our office where she is evaluated and given her treatment alternatives. She preferred surgical stabilization with an intramedullary nii and screws. She did have swelling but no fracture blisters, no compartment syndrome. Her x-rays showed displaced fractures of the distal tibial shaft and proximal fibula. Findings: She had displaced distal shaft fracture involving the right tibia, proximal third right fibula. There was some comminution at the fracture site of the tibia. Complications: None - Other Other Information/Narrative: The patient was brought to the operating room. She was placed in supine position. After general endotracheal anesthesia been obtained, a foam bolster was placed beneath the right leg, bump beneath the right buttock. The right lower extremity was prepped and draped in a sterile manner in the usual fashion. The C-arm image intensifier was covered with sterile drape. A timeout procedure was performed by the entire operating room team and all were in agreement. No tourniquet was utilized. We started the procedure by placing percutaneous partially cannulated screw from medial to lateral. Initially our trajectory was measured out using a [place]. We then made a small skin incision and bluntly dissected down with a hemostat. A K wire was then sent from medial to lateral across to the far cortex. This was measured and the appropriate screw was used. A screw was placed from medial to lateral with partially threaded screws that crossed the fracture site. With this adequate fixation we then turned our attention to the tibial nail. A suprapatellar semiextended approach was utilized. A 2 and half centimeter incision was made just superior to the patella in line with the shaft of the tibia. The quadriceps tendon was split. The entry cannula was inserted with the knee in full extension and engaged the proximal tibial cortex. The guidepin was inserted so that the entry point was just medial to the lateral tibial spine and just anterior to the intrameniscal ligament. The C-arm image intensifier confirmed satisfactory alignment of the guidepin. The honeycomb device was removed and a long intramedullary guide pin was inserted down the tibial canal, manual reduction of fracture to allow guidepin to cross the fracture into the distal tibia. Intramedullary flexible reaming was then carried out and half millimeter increments from 9 to 11.5 mm. The depth of the guidepin had been measured at 38 cm and was elected to use a 10 x 37 cm intramedullary nii. This was impacted down to the fracture, concentric reduction and then pushed across the fracture into the distal tibial physis area of the right ankle. The C-arm image intensifier was used to verify AP and lateral reduction before driving the nii across the fracture. At this point we recognize that the distal fragment had moved distally. This created a gap at the fracture site. We decided to fix distally and that we would back slap to try to compress across the fracture site. The long flexible guidepin was removed. 3 distal locking screws were inserted to from medial to lateral and 1 from anterior to posterior. The anterior screw was placed to prevent contact with anterior tendons about the ankle area. We then back slapped with good compression across the fracture site. One proximal locking screws were inserted. The fractures seem to be satisfactory aligned after all of the jigs have been removed. The knee joint was thoroughly irrigated with saline. The quadriceps tendon was repaired with 0 Vycryl suture, 3-0 Monocryl subcuticular suture, Dermabond. The locking screws holes were approximated with single 3-0 nylon suture. Xeroform was applied to the locking screw incisions. A well-padded Short leg splint was applied. She did receive 2 g of Ancef and 1 g of TXA intravenously, tolerated procedure well. A physician reproductive healthcare assistant was medically necessary to help with prepping and draping, positioning, protection of vital structures, assistance during the procedure including wound closure, dressing and/or splinting. Jaxon Barragan MD Post Op Diagnosis: CYN - Procedure Note Primary Surgeon: Jaxon Barragan Secondary Surgeon: Chacho eGrber Anesthesia Technique: General ET tube, MAC Estimated Blood Loss (mL): 150 Indications: Unstabile Right TIbia and Fibula Fracture Complications: None
[2024-03-23] MEDS ORDERED: ONDANSETRON 4 MG/2 ML VIAL ONE (12:24)
[2024-03-23] MEDS: ONDANSETRON 4 MG/2 ML VIAL IVP PRN (12:26)
[2024-03-23] MEDS ORDERED: oxyCODONE 5 MG TABLET ONE (12:37)
[2024-03-23] MEDS: oxyCODONE 5 MG TABLET PO PRN (12:46)
--- NOTE | 2024-03-23 12:46 | ANESTHESIA POST OP EVALUATION ---
Anesthesia Post Eval - Post Anesthesia Eval Vitals: Last Vital Signs Temp 37.4 C 03/23/24 12:30 Pulse 64 03/23/24 12:40 Resp 16 03/23/24 12:40 BP 124/77 03/23/24 12:40 Pulse Ox 97 03/23/24 12:40 O2 Flow Rate CV Function Including HR & BP: Stable Pain Control: Satisfactory Nausea & Vomiting: Negative Mental Status: Baseline Respiratory Status: Airway Patent Hydration Status: Satisfactory Anesthesia Complications: None
[2024-03-23 13:30] VITALS: BP 138/89; O2SAT 96
--- NOTE | 2024-03-23 22:06 | XRAY Report ---
PROCEDURE: OR C-Arm Procedure INDICATIONS: ORIF Right Tibia FLUORO TIME: 1:08 TECHNIQUE: 5 intraoperative views of the right tibia. COMPARISON: Right ankle radiographs 03/21/2024. FINDINGS: Several tibia intramedullary nii with screw fixation. Hardware projects in expected location. Prior f racture at the distal tibia. Prior fracture at the distal fibula with mild displacement. IMPRESSION: Intraoperative guidance provided. Reviewed by: Manolo Singh MD on 03/23/2024 10:04 PM PDT Approved by: Manolo Singh MD on 03/23/2024 10:04 PM PDT Station ID: [id number]
== END 2024-03-23 06:55 | disposition home or self-care (01) ==
LOC: SDS 06:54
PROVIDERS: ATTEND Orthopaedic Surgery
DX: S82.301A Unspecified fracture of lower end of right tibia, initial encounter for closed fracture (principal); S82.831A Other fracture of upper and lower end of right fibula, initial encounter for closed fracture; W10.9XXA Fall (on) (from) unspecified stairs and steps, initial encounter; F17.210 Nicotine dependence, cigarettes, uncomplicated; Z32.02 Encounter for pregnancy test, result negative
CPT/HCPCS: 27759; 81025; A9270; C1713; J1170; J3490; J7120

== ENCOUNTER 2024-04-07 11:22 | Outpatient (CLI) | payer OTHER ==
--- NOTE | 2024-04-07 16:19 | XRAY Report ---
PROCEDURE: Ankle 3+V RT INDICATIONS: RIGHT TIBIA FRACTURE TECHNIQUE: 3 views of the ankle were acquired. COMPARISON: 03/14/2024, 03/21/2024. FINDINGS: Bones: Patient is status post interval internal fixation of previously noted comminuted and displace d distal tibial shaft fracture. There is improved ankle alignment. No gross hardware loosening or raza lure. Displaced distal fibular shaft fracture is again seen and unchanged. No new fracture or disloca tion. Soft tissues: No tibiotalar joint effusion. Achilles tendon appears normal. IMPRESSION: Interval fixation of distal tibial fracture with surgical hardware in place. No evidence of hardware loosening or failure. Displaced fibular shaft fracture. No new fracture or dislocation. I mproved right ankle alignment since previous study. Reviewed by: Warren Mccain MD on 04/07/2024 4:18 PM PDT Approved by: Warren Mccain MD on 04/07/2024 4:18 PM PDT Station ID: [id number]
== END 2024-04-07 11:23 | disposition home or self-care (01) ==
LOC: DI 11:22
PROVIDERS: ATTEND Orthopaedic Surgery
DX: S82.301D Unspecified fracture of lower end of right tibia, subsequent encounter for closed fracture with routine healing (principal); S82.831D Other fracture of upper and lower end of right fibula, subsequent encounter for closed fracture with routine healing

== ENCOUNTER 2024-06-13 13:03 | Outpatient (CLI) | payer OTHER ==
--- NOTE | 2024-06-15 22:52 | XRAY Report ---
PROCEDURE: Ankle 3+V RT INDICATIONS: DISPLACED TRANSVERSE FX OF SHAFT R TIBIA TECHNIQUE: 2 views of the ankle were acquired. COMPARISON: Prior ankle series dated 05/01/2024. FINDINGS: Bones: Stable alignment status post ORIF of right ankle fracture. Fracture lucencies are less distin ct involving the distal tibia and stable positioning of tibial intramedullary nii and multiple associ ated fixation screws. Progressive healing of distal fibular fracture or fracture lucency is less dist inct and downgoing bridging callus is now noted. Ankle mortise is symmetric. Soft tissues: No tibiotalar joint effusion. Achilles tendon appears normal. IMPRESSION: Stable alignment status post ORIF with progressive healing of distal tibial and distal fibular fractu res. Reviewed by: ETELVINA Holguin on 06/15/2024 10:51 PM PDT Approved by: Mary Harmon MD on 06/15/2024 10:51 PM PDT Station ID: [id number]
== END 2024-06-13 13:04 | disposition home or self-care (01) ==
LOC: DI 13:03
PROVIDERS: ATTEND Orthopaedic Surgery
DX: S82.301D Unspecified fracture of lower end of right tibia, subsequent encounter for closed fracture with routine healing (principal); S82.831D Other fracture of upper and lower end of right fibula, subsequent encounter for closed fracture with routine healing